=== PATIENT | female | born 1985 ===

== ENCOUNTER 2024-09-21 10:15 | Inpatient (IN) | payer OTHER ==
[~2024-09-21] VITALS: Ht 160 cm; Wt 68.0 kg
[2024-09-21 12:31] LABS: BASO % 0.3 % (0.1-1.2); EOS # 0.06 (0.04-0.54); EOS % 0.9 % (0.7-7.0); HEMATOCRIT 39.2 % (34.1-44.9); HEMOGLOBIN 12.9 g/dL (11.2-15.7); LYMPH # 2.41 (1.18-3.74); MONO # 0.46 (0.24-0.82); MONO % 6.7 % (4.7-12.5); NEUT # 3.92 (1.56-6.13); NEUT % 56.8 % (34.0-71.1); PLATELET COUNT 266 K/uL (163-369); RED BLOOD COUNT 5.16 M/uL (3.93-5.22); RED CELL DISTRIBUTION WIDTH 18.6 % (11.6-14.4)
[2024-09-21 12:49] VITALS: BP 122/81
[2024-09-21 12:51] VITALS: BP 106/75
[2024-09-21 12:59] LABS: PH,URINE 6.5 (5.0-8.0); URINE APPEARANCE Clear; URINE BILIRRUBIN Negative (NEGATIVE); URINE BLOOD NHT; URINE COLOR Yellow; URINE GLUCOSE Negative (NEGATIVE); URINE KETONE Negative (NEGATIVE); URINE LEUKOCYTE Negative; URINE NITRATE Negative; URINE PROTEIN Negative (NEGATIVE); URINE UROBILINOGEN 0.2 E.U./dl
[2024-09-21 13:02] LABS: INR 1.06; PARTIAL THROMBOPLASTIN TIME 24.3 SECONDS (22.0-34.0); PROTHROMBIN TIME 11.5 SECONDS (9.0-11.5)
[2024-09-21 13:06] LABS: URINE RBC 27.5 uL (0.0-20.8); URINE WBC 2.8 uL (0.0-23.2)
[2024-09-21 13:21] LABS: URINE EPITHELIAL CELLS 0.9 uL (0.0-38.8)
[2024-09-21 14:01] LABS: ALBUMIN 3.9 gm/dL (3.4-5.0); BILIRUBIN TOTAL 0.56 mg/dL (0.3-1.2); CALCIUM 9.2 mg/dL (8.5-10.1); CREATININE SERUM 0.63 mg/dL (0.55-1.02); GFR 104.66; GLOBULINA 3.5 G/DL (2.4-3.5); POTASSIUM 3.84 mEq/L (3.5-5.1); TOTAL PROTEIN 7.4 gm/dL (6.4-8.2)
[2024-09-21 15:08] LABS: RH POSITIVE
[2024-09-28] MEDS ORDERED: CHLORHEXIDINE GLUCONATE 120 ML BOTTLE TOP ONE (11:36)
[2024-09-28] MEDS ORDERED: POVIDONE-IODINE 118 ML BOTT TOP ONE (11:36)
[2024-09-28] MEDS ORDERED: BUPIVACAINE HCL/MPF 0.5% 30ML VIAL ONE (11:36)
[2024-09-28] MEDS ORDERED: CEFAZOLIN SODIUM 1,000 MG VIAL ONE (11:46)
[2024-09-28] MEDS ORDERED: METRONIDAZOLE/SODIUM CHLORIDE 500 MG/100 ML PIGGYBACK IV ONE (13:42)
[2024-09-28] MEDS ORDERED: HEMOSTATIC MATRIX WITH THROMBIN KIT TOP ONE (15:29)
[2024-09-28] MEDS ORDERED: SURGIFLO APPLICATOR 1 EACH APPL TOP ONE (15:29)
[2024-09-28] MEDS ORDERED: KETOROLAC TROMETHAMINE 30 MG VIAL IV SCH (18:56)
[2024-09-28] MEDS ORDERED: GABAPENTIN 300 MG CAPSULE PO SCH (18:57)
[2024-09-28] MEDS ORDERED: ACETAMINOPHEN 500 MG GEL..CAP PO SCH (18:57)
[2024-09-28] MEDS ORDERED: ONDANSETRON HCL 2 MG/ML VIAL IV PRN (19:00)
[2024-09-28] MEDS ORDERED: RINGERS SOLUTION,LACTATED 1,000 ML IV SCH (19:00)
[2024-09-28] MEDS ORDERED: KETOROLAC TROMETHAMINE 30 MG VIAL ONE (19:09)
[2024-09-28 19:33] VITALS: BP 122/81
[2024-09-29 00:40] VITALS: BP 104/67
[2024-09-29 05:14] LABS: BASO % 0.2 % (0.1-1.2); EOS # 0.07 (0.04-0.54); EOS % 0.8 % (0.7-7.0); HEMATOCRIT 35.1 % (34.1-44.9); HEMOGLOBIN 11.4 g/dL (11.2-15.7); LYMPH % 22.4 % (19.3-53.1); MEAN CORPUSCULAR HEMOGLOBIN 25.6 pg (25.6-32.2); MONO # 0.88 (0.24-0.82); MONO % 10.4 % (4.7-12.5); NEUT # 5.59 (1.56-6.13); PLATELET COUNT 241 K/uL (163-369); RED BLOOD COUNT 4.46 M/uL (3.93-5.22)
[2024-09-29 08:00] VITALS: BP 109/78
== END 2024-09-29 10:24 | disposition home or self-care (01) | DRG 743 ==
LOC: O/R 09-28 06:45 → SURH 09-28 10:15 → OB/GYN 09-28 17:22
PROVIDERS: ADMIT Student in an Organized Health Care Education/Training Program; ATTEND Student in an Organized Health Care Education/Training Program
PROC: 0UT74ZZ Resection of Bilateral Fallopian Tubes, Percutaneous Endoscopic Approach (ICD-10-PCS; 2024-09-28)
PROC: 0TN74ZZ Release Left Ureter, Percutaneous Endoscopic Approach (ICD-10-PCS; 2024-09-28)
PROC: 0TN64ZZ Release Right Ureter, Percutaneous Endoscopic Approach (ICD-10-PCS; 2024-09-28)
PROC: 0WBH4ZZ Excision of Retroperitoneum, Percutaneous Endoscopic Approach (ICD-10-PCS; 2024-09-28)
PROC: 0UBC4ZZ Excision of Cervix, Percutaneous Endoscopic Approach (ICD-10-PCS; 2024-09-28)
PROC: 8E0W4CZ Robotic Assisted Procedure of Trunk Region, Percutaneous Endoscopic Approach (ICD-10-PCS; 2024-09-28)
PROC: 0TJB8ZZ Inspection of Bladder, Via Natural or Artificial Opening Endoscopic (ICD-10-PCS; 2024-09-28)
PROC: 0UT94ZZ Resection of Uterus, Percutaneous Endoscopic Approach (ICD-10-PCS; principal; 2024-09-28 13:30)
DX: D25.9 Leiomyoma of uterus, unspecified (principal); N94.6 Dysmenorrhea, unspecified; N93.9 Abnormal uterine and vaginal bleeding, unspecified; N80.9 Endometriosis, unspecified; Z90.710 Acquired absence of both cervix and uterus; N72 Inflammatory disease of cervix uteri; R10.2 Pelvic and perineal pain; N80.03 Adenomyosis of the uterus; N80.399 Endometriosis of the pelvic peritoneum, other specified sites, unspecified depth; N80.00 Endometriosis of the uterus, unspecified
CPT/HCPCS: 58571; 52000; 58662; 50715; S2900